=== PATIENT | male | born 1995 | race Caucasian/White ===

== ENCOUNTER 2019-07-05 17:01 | Emergency (ER) | payer OTHER ==
[~2019-07-05] VITALS: Ht 182.9 cm; Wt 134.7 kg
[2019-07-05 17:04] VITALS: BP 169/99
[2019-07-05 18:22] VITALS: BP 144/80
== END 2019-07-05 18:23 | disposition home or self-care (01) ==
LOC: MED 17:01
DX: R07.9 Chest pain, unspecified (principal); K21.9 Gastro-esophageal reflux disease without esophagitis
CPT/HCPCS: 71045; 93005; 99283